=== PATIENT | male | born 1945 | race Caucasian/White ===

== ENCOUNTER 2019-01-09 11:10 | Inpatient (IN) | payer MEDICARE, OTHER ==
[~2019-01-09] VITALS: Ht 182.9 cm; Wt 69.0 kg
[2019-01-09 11:56] LABS: BASOPHILS % (AUTO) 0.4 % (0-1); EOSINOPHILS # (AUTO) 0.3 X10'3 (0-0.9); EOSINOPHILS % (AUTO) 8.7 % (0-6); HEMATOCRIT 34.4 % (42.0-52.0); HEMOGLOBIN 11.4 g/dl (14.0-17.9); LYMPHOCYTES # (AUTO) 0.3 X10'3 (1.1-4.8); LYMPHOCYTES % (AUTO) 9.1 % (21-51); MEAN CORPUSCULAR HEMOGLOBIN 31.4 PG (27.0-31.0); MEAN CORPUSCULAR HGB CONC 33.3 g/dL (33.0-36.5); MEAN CORPUSCULAR VOLUME 94.5 FL (78-98); MEAN PLATELET VOLUME 7.5 FL (7.4-10.4); MONOCYTES # (AUTO) 0.5 X10'3 (0-0.9); MONOCYTES % (AUTO) 12.2 % (2-12); NEUTROPHILS # (AUTO) 2.6 X10'3 (1.8-7.7); NEUTROPHILS % (AUTO) 69.6 % (42-75); PLATELET COUNT 133 X10'3 (140-440); RED BLOOD COUNT 3.64 X10'6 (4.70-6.10); RED CELL DISTRIBUTION WIDTH 15.1 % (11.5-14.5); WHITE BLOOD COUNT 3.7 X10'3 (4.5-11.0)
[2019-01-09 12:20] LABS: ALANINE AMINOTRANSFERASE 28 U/L (12-78); ALBUMIN 3.4 G/DL (3.4-5.0); ALBUMIN/GLOBULIN RATIO 0.9 (1.1-1.5); ALKALINE PHOSPHATASE 70 IU/L (46-116); ANION GAP 8 (8-16); ASPARTATE AMINO TRANSFERASE 21 U/L (10-37); BILIRUBIN,TOTAL 0.6 MG/DL (0.1-1.0); BLOOD UREA NITROGEN 28 MG/DL (7-18); BUN/CREATININE RATIO 34.1 (5.4-32.0); CALCIUM 8.9 MG/DL (8.5-10.1); CHLORIDE 107 MMOL/L (99-107); CREATININE 0.82 MG/DL (0.60-1.10); GLUCOSE 106 MG/DL (70-104); POTASSIUM 4.6 MMOL/L (3.5-5.1); SODIUM 142 MMOL/L (135-145); TOTAL CARBON DIOXIDE 27.2 MMOL/L (24-32); TOTAL PROTEIN 7.3 G/DL (6.4-8.2); eGFR > 90 ML/MIN
[2019-01-09 12:25] LABS: PARTIAL THROMBOPLASTIN TIME 40 SECONDS (22-32)
[2019-01-09] MEDS ORDERED: FISH12002 PO (13:10)
[2019-01-09] MEDS ORDERED: ATOR80TA PO (13:10)
[2019-01-09] MEDS ORDERED: OCUVITE PO (13:10)
[2019-01-09] MEDS ORDERED: ASPI-611 PO (13:10)
[2019-01-09] MEDS ORDERED: CETI10TA18 PO (13:10)
[2019-01-09] MEDS ORDERED: APIX5TAB3 PO (13:10)
[2019-01-09] MEDS ORDERED: MULT-933 PO (13:10)
[2019-01-09] MEDS ORDERED: potassium CL 10mEq/100ml bag 100 ML IV PRN ×2 (13:35)
[2019-01-09] MEDS ORDERED: potassium Cl 20 mEq SR tablet PO PRN ×2 (13:35)
[2019-01-09] MEDS ORDERED: ondansetron/PF 4mg/2ml inj IV PRN (13:35)
[2019-01-09] MEDS ORDERED: magnesium 2GM in 50ml NS 50 ML IV PRN (13:35)
[2019-01-09] MEDS ORDERED: magnesium 4gm in 100ml NS 100 ML IV PRN (13:35)
[2019-01-09] MEDS ORDERED: acetaminophen 325mg tablet PO PRN (13:35)
[2019-01-09] MEDS ORDERED: magnesium Cl slow-release 64mg tablet PO PRN (13:35)
--- NOTE | 2019-01-09 14:40 | NUR ---
Received report from Concha. Patient arrived on unit and ambulated to bed with RN. Vital signs obtained, telemetry monitoring initiated and patient oriented to room. Physical assessment was performed and is at bedside. Will continue to monitor.
[2019-01-09 15:15] VITALS: BP 127/49
--- NOTE | 2019-01-09 17:39 | NUR ---
PAGER ID: [phone] MESSAGE: Eriberto 301Delfino Rios. Patient would like to know if he is going to have a pacemaker put in and what his plan of care is. Frances [id number]
--- NOTE | 2019-01-09 18:15 | NUR ---
Patient in room PCU 3017. I have received report from Frances CISNEROS and had the opportunity to ask questions and assume patient care.
--- NOTE | 2019-01-09 18:30 | NUR ---
Problems reprioritized. Patient report given, questions answered & plan of care reviewed with Ana CISNEROS.
[2019-01-09 19:00] VITALS: BP 136/60
[2019-01-09 23:00] VITALS: BP 130/62
[2019-01-10] VITALS (15 sets, daily range): BP systolic 103–146; BP diastolic 53–78
[2019-01-10 05:40] LABS: BASOPHILS % (AUTO) 0.9 % (0-1); EOSINOPHILS # (AUTO) 0.4 X10'3 (0-0.9); EOSINOPHILS % (AUTO) 11.2 % (0-6); HEMATOCRIT 32.7 % (42.0-52.0); LYMPHOCYTES # (AUTO) 0.3 X10'3 (1.1-4.8); LYMPHOCYTES % (AUTO) 9.5 % (21-51); MEAN CORPUSCULAR HEMOGLOBIN 31.8 PG (27.0-31.0); MEAN CORPUSCULAR HGB CONC 33.7 g/dL (33.0-36.5); MEAN CORPUSCULAR VOLUME 94.3 FL (78-98); MEAN PLATELET VOLUME 8.3 FL (7.4-10.4); MONOCYTES # (AUTO) 0.4 X10'3 (0-0.9); MONOCYTES % (AUTO) 13.5 % (2-12); NEUTROPHILS # (AUTO) 2.1 X10'3 (1.8-7.7); NEUTROPHILS % (AUTO) 64.9 % (42-75); PLATELET COUNT 121 X10'3 (140-440); RED BLOOD COUNT 3.47 X10'6 (4.70-6.10); RED CELL DISTRIBUTION WIDTH 14.8 % (11.5-14.5); WHITE BLOOD COUNT 3.2 X10'3 (4.5-11.0)
[2019-01-10 05:47] LABS: ALBUMIN 3.1 G/DL (3.4-5.0); ANION GAP 6 (8-16); BLOOD UREA NITROGEN 19 MG/DL (7-18); CALCIUM 8.8 MG/DL (8.5-10.1); CHLORIDE 109 MMOL/L (99-107); CREATININE 0.76 MG/DL (0.60-1.10); GLUCOSE 91 MG/DL (70-104); POTASSIUM 4.2 MMOL/L (3.5-5.1); SODIUM 143 MMOL/L (135-145); TOTAL CARBON DIOXIDE 27.9 MMOL/L (24-32); eGFR > 90 ML/MIN
--- NOTE | 2019-01-10 06:30 | NUR ---
Patient in room PCU 3017. I have received report from BLAYNE Justice and had the opportunity to ask questions and assume patient care.
[2019-01-10] MEDS: K and/or MAG REPLACEMENT MC SCH (08:00)
--- NOTE | 2019-01-10 09:00 | NUR ---
Patient inquiring as to when he will get his pacemaker inserted. He states he was told between 8:00 and 8:30. Verified with the charge nurse and she states it will be between 7:00 and 11:00/ Addendum: 01/10/19 at 0932 by Fay Hernandez RN Patient very upset, swearing. Discussed situation with patient and he seems to calm down.
[2019-01-10] MEDS ORDERED: non-formulary drug (Cetirizine HCl 1 TAB) PO PRN (11:45)
[2019-01-10] MEDS ORDERED: midazolam 2 mg/2 ml injection ONE (11:50)
[2019-01-10] MEDS ORDERED: cetirizine 10mg tablet PO PRN (11:50)
[2019-01-10] MEDS ORDERED: fentaNYL/PF 50MCG/1 ML 2ML syringe ONE (11:50)
[2019-01-10] MEDS ORDERED: LIDOcaine 1% W/epiNEPHrine 1:100,000 20ml vial ONE (11:51)
[2019-01-10] MEDS ORDERED: ceFAZolin 1000mg inj ONE ×2 (11:51→11:52)
[2019-01-10] MEDS ORDERED: ceFAZolin 1GM/D5W- ADD-VANTAGE 50 ML IV ONE (11:51)
[2019-01-10] MEDS ORDERED: normal saline 1000ml 1,000 ML IV SCH (14:00)
[2019-01-10] MEDS ORDERED: HYDROcodone/acetaminophen 10/325mg tab PO PRN (14:25)
[2019-01-10] MEDS ORDERED: HYDROcodone/acetaminophen 5mg/325mg tablet PO PRN (14:25)
--- NOTE | 2019-01-10 15:22 | NUR ---
PT in to get patient up - sa02 88% at 2 l/nc. Increased to 4/l with an increase to 90%. Patient complains of pain and nausea. Reminded to push button for pain med and medicated for nausea. Addendum: 01/10/19 at 1524 by Fay Hernandez RN above entry is wrong patient.
[2019-01-10] MEDS ORDERED: vancomycin/NS 1 GM ADD-VANTAGE 250 ML X 1 DOSE IV ONE (17:00)
--- NOTE | 2019-01-10 18:05 | NUR ---
Problems reprioritized. Patient report given, questions answered & plan of care reviewed with BLAYNE Hughes.
--- NOTE | 2019-01-10 18:31 | NUR ---
Patient in room PCU 3017. I have received report from Fay CISNEROS and had the opportunity to ask questions and assume patient care. Checked on patient, he is resting and on the phone with a family member. at bedside. Will continue to monitor.
[2019-01-10] MEDS: omega-3 acid ethyl esters 1GM capsule PO SCH (19:25)
[2019-01-10] MEDS ORDERED: non-formulary drug (Fish Oil/Borage/Flax/Om3,6,9#1 (Omega 3-6-9 1,200 mg Softgel) 1 CAP) PO SCH (20:00)
--- NOTE | 2019-01-11 02:22 | NUR ---
Paged Dr. Gomez PAGER ID: [phone] MESSAGE: Reshma HERNDON [phone], Osmany Saleh [id number] had pacemaker place yesterday. Has pain level of 5, refuses to take [place]. Can we get order for Tylenol or IBU?
[2019-01-11] MEDS ORDERED: acetaminophen 325mg tablet PO PRN ×2 (02:30→07:00)
[2019-01-11 03:00] VITALS: BP 118/67
[2019-01-11 05:20] LABS: ALBUMIN 3.1 G/DL (3.4-5.0); ANION GAP 8 (8-16); BASOPHILS % (AUTO) 0.5 % (0-1); BLOOD UREA NITROGEN 15 MG/DL (7-18); BUN/CREATININE RATIO 19.5 (5.4-32.0); CALCIUM 8.4 MG/DL (8.5-10.1); CHLORIDE 107 MMOL/L (99-107); CREATININE 0.77 MG/DL (0.60-1.10); EOSINOPHILS # (AUTO) 0.3 X10'3 (0-0.9); GLUCOSE 101 MG/DL (70-104); HEMOGLOBIN 11.8 g/dl (14.0-17.9); LYMPHOCYTES # (AUTO) 0.3 X10'3 (1.1-4.8); MEAN CORPUSCULAR HEMOGLOBIN 31.4 PG (27.0-31.0); MEAN CORPUSCULAR HGB CONC 33.7 g/dL (33.0-36.5); MEAN CORPUSCULAR VOLUME 93.2 FL (78-98); MEAN PLATELET VOLUME 7.9 FL (7.4-10.4); MONOCYTES # (AUTO) 0.6 X10'3 (0-0.9); MONOCYTES % (AUTO) 11.8 % (2-12); NEUTROPHILS # (AUTO) 3.6 X10'3 (1.8-7.7); NEUTROPHILS % (AUTO) 75.7 % (42-75); PLATELET COUNT 127 X10'3 (140-440); POTASSIUM 3.9 MMOL/L (3.5-5.1); RED BLOOD COUNT 3.76 X10'6 (4.70-6.10); RED CELL DISTRIBUTION WIDTH 14.9 % (11.5-14.5); SODIUM 141 MMOL/L (135-145); TOTAL CARBON DIOXIDE 25.6 MMOL/L (24-32); WHITE BLOOD COUNT 4.7 X10'3 (4.5-11.0); eGFR > 90 ML/MIN
--- NOTE | 2019-01-11 05:41 | NUR ---
Patient woke up extremely agitated, trying to get out of his hospital gown, taking off his tele monitor and dislodging his IV. I explained that as soon as the daytime hospitalist puts in discharge orders he can leave. He stated "I can leave anytime I want and I am leaving this morning." I got him to settle down, replace tele tabs, and got him partially dressed. Addendum: 01/11/19 at 0553 by Reshma Treviño RN Patient refuses new IV access
[2019-01-11 06:00] VITALS: BP 114/72
--- NOTE | 2019-01-11 06:00 | NUR ---
Patient in room PCU 3017. I have received report from BLAYNE Justice and had the opportunity to ask questions and assume patient care. patient is currently resting in bed, bed locked and low, call light in reach, no acute distress, will continue to monitor
--- NOTE | 2019-01-11 06:25 | NUR ---
Problems reprioritized. Patient report given, questions answered & plan of care reviewed with Shi CISNEROS.
[2019-01-11] MEDS: omega-3 acid ethyl esters 1GM capsule PO SCH (07:57)
[2019-01-11] MEDS ORDERED: atorvastatin 20mg tablet PO SCH (08:00)
[2019-01-11] MEDS ORDERED: non-formulary drug (Multivitamin (One Daily Multivitamin) 1 TAB) PO SCH (08:00)
[2019-01-11] MEDS ORDERED: non-formulary drug (Atorvastatin Calcium (Lipitor) 1 TAB) PO SCH (08:00)
[2019-01-11] MEDS ORDERED: multivitamins, therapeutics tablet PO SCH (08:00)
[2019-01-11] MEDS: K and/or MAG REPLACEMENT MC SCH (08:00)
[2019-01-11] MEDS ORDERED: CEPH250T PO (08:08)
[2019-01-11] MEDS ORDERED: apixaban 5mg tablet PO SCH ×2 (08:15→20:00)
== END 2019-01-11 10:38 | disposition home or self-care (01) | DRG 243 ==
LOC: ER 11:10 → PCU 3S 14:48 → CMPBEDREQ 19:26
PROVIDERS: ADMIT Internal Medicine; ATTEND Internal Medicine
PROC: 0JH606Z Insertion of Pacemaker, Dual Chamber into Chest Subcutaneous Tissue and Fascia, Open Approach (ICD-10-PCS; principal; 2019-01-10)
PROC: 02H63JZ Insertion of Pacemaker Lead into Right Atrium, Percutaneous Approach (ICD-10-PCS; 2019-01-10)
PROC: 02HK3JZ Insertion of Pacemaker Lead into Right Ventricle, Percutaneous Approach (ICD-10-PCS; 2019-01-10)
PROC: 0JPT02Z Removal of Monitoring Device from Trunk Subcutaneous Tissue and Fascia, Open Approach (ICD-10-PCS; 2019-01-10)
DX: I49.5 Sick sinus syndrome (principal); D68.69 Other thrombophilia; I48.0 Paroxysmal atrial fibrillation; E78.5 Hyperlipidemia, unspecified; I10 Essential (primary) hypertension; M19.90 Unspecified osteoarthritis, unspecified site; G62.9 Polyneuropathy, unspecified; I95.9 Hypotension, unspecified; I25.10 Atherosclerotic heart disease of native coronary artery without angina pectoris; Z79.01 Long term (current) use of anticoagulants; Z79.899 Other long term (current) drug therapy; Z87.891 Personal history of nicotine dependence; Z79.82 Long term (current) use of aspirin; Z95.5 Presence of coronary angioplasty implant and graft; Z86.73 Personal history of transient ischemic attack (TIA), and cerebral infarction without residual deficits
CPT/HCPCS: 33208; 33217; 33286; 36415; 71045; 71046; 80048; 80053; 83735; 83880; 84484; 85025; 85610; 85730; 87081; 93005; 99152; 99153; 99285; A4565; A4620; A6258; A6449; C1785; C1894; C1898; G0378; J0690; J2250; J3010; J3370; J7030

== ENCOUNTER 2023-02-28 22:02 | Emergency (ER) | payer OTHER ==
[~2023-02-28] VITALS: Ht 182.9 cm; Wt 68.2 kg
[~2023-02-28 22:02] MED LIST: APIX5TAB3 PO; ASPI-611 PO; ATOR80TA PO; CETI10TA19 PO; FISH12002 PO; MULT-933 PO; OCUVITE PO
[2023-02-28 22:14] VITALS: BP 141/76; PULSE 57; RESP 16; TEMP 98.6; O2SAT 99
[2023-02-28 22:27] LABS: HEMOGLOBIN 10.7 g/dl (14.0-17.9)
[2023-02-28 22:29] LABS: BASOPHILS % (AUTO) 0.8 % (0-1); EOSINOPHILS # (AUTO) 0.9 X10'3 (0-0.9); EOSINOPHILS % (AUTO) 18.9 % (0-6); HEMATOCRIT 32.2 % (42.0-52.0); LYMPHOCYTES # (AUTO) 0.4 X10'3 (1.1-4.8); LYMPHOCYTES % (AUTO) 8.8 % (21-51); MEAN CORPUSCULAR HEMOGLOBIN 30.2 PG (27.0-31.0); MEAN CORPUSCULAR HGB CONC 33.2 g/dL (33.0-36.5); MEAN CORPUSCULAR VOLUME 91.1 FL (78-98); MONOCYTES # (AUTO) 0.6 X10'3 (0-0.9); MONOCYTES % (AUTO) 12.9 % (2-12); NEUTROPHILS # (AUTO) 2.8 X10'3 (1.8-7.7); NEUTROPHILS % (AUTO) 58.6 % (42-75); PLATELET COUNT 175 X10'3 (140-440); RED BLOOD COUNT 3.53 X10'6 (4.70-6.10); RED CELL DISTRIBUTION WIDTH 14.7 % (11.5-14.5); WHITE BLOOD COUNT 4.8 X10'3 (4.5-11.0)
[2023-02-28 22:39] LABS: ALANINE AMINOTRANSFERASE 27 U/L (12-78); ALBUMIN 3.2 G/DL (3.4-5.0); ALBUMIN/GLOBULIN RATIO 0.8 (1.1-1.5); ALKALINE PHOSPHATASE 90 IU/L (46-116); ANION GAP 4 (8-16); ASPARTATE AMINO TRANSFERASE 22 U/L (10-37); BILIRUBIN,TOTAL 0.5 MG/DL (0.1-1.0); BLOOD UREA NITROGEN 27 MG/DL (7-18); CALCIUM 8.8 MG/DL (8.5-10.1); CHLORIDE 102 MMOL/L (99-107); CREATININE 1.04 MG/DL (0.60-1.10); GLUCOSE 104 MG/DL (70-104); SODIUM 136 MMOL/L (135-145); TOTAL CARBON DIOXIDE 30.3 MMOL/L (24-32); TOTAL PROTEIN 7.4 G/DL (6.4-8.2); eCRCL 56 ML/MIN; eGFR 69 ML/MIN
[2023-02-28 22:47] LABS: PRO BRAIN NATRIURETIC PEPTIDE 446 PG/ML (0-450)
[2023-03-01 00:16] LABS: TOTAL CELLS COUNTED 100
[2023-03-01 00:17] LABS: PLATELET ESTIMATE NORMAL
--- NOTE | 2023-03-01 00:28 | NUR ---
INFORMED STAFF THAT THEY WILL BE HEADING HOME, HAVE DECIDED NOT TO STAY.
== END 2023-03-01 00:30 | disposition left against medical advice (07) ==
LOC: ER 22:02
DX: R42 Dizziness and giddiness (principal); Z53.21 Procedure and treatment not carried out due to patient leaving prior to being seen by health care provider
CPT/HCPCS: 36415; 71045; 80053; 83880; 84484; 85007; 85025; 93005; 99281